=== PATIENT | male | born 1995 | race Caucasian/White ===

== ENCOUNTER 2020-12-25 15:58 | Outpatient (CLI) | payer OTHER ==
--- NOTE | 2020-12-25 16:54 | Ultrasound Report ---
PROCEDURE: Testicle INDICATIONS: Scrotal varices TECHNIQUE: Real-time scanning was performed of the scrotum and testicles, with image documentation. Color and p ulse Doppler interrogation was performed of both testicles. COMPARISON: None. FINDINGS: Right: No varicocele on the right. Small right varicocele. Normal appearance of the right testicle me asuring 2.4 x 2.8 x 4.4 cm. Normal arterial and venous Doppler signal in the right testicle. Epididym is unremarkable. Left: Mild to moderate left varicocele. Small left hydrocele. Normal appearance of the left testicle measuring 2.1 x 2.4 x 4.0 cm. No peripheral arterial and venous Doppler signal in the left testicle. Epididymis unremarkable. Doppler: Color and pulse Doppler demonstrate normal and symmetric arterial flow in both testicles. IMPRESSION: Mild to moderate left varicocele. Small bilateral hydroceles. Reviewed by: Lon Dudley MD on 12/25/2020 4:53 PM PDT Approved by: Lon Dudley MD on 12/25/2020 4:53 PM PDT Station ID: [id number]
== END 2020-12-25 15:59 | disposition home or self-care (01) ==
LOC: DI 15:58
PROVIDERS: ATTEND Urology
DX: I86.1 Scrotal varices (principal)

== ENCOUNTER 2022-06-07 21:27 | Emergency (ER) | payer OTHER ==
[2022-06-07] MEDS ORDERED: SODIUM CHLORIDE 0.9% 1,000 ML IV STA ×2 (21:46→22:33)
[2022-06-07] MEDS ORDERED: KETOROLAC 30 MG/ML VIAL IVP STA (21:46)
[2022-06-07] MEDS ORDERED: ONDANSETRON 4 MG/2 ML VIAL IVP STA (21:46)
[2022-06-07 22:02] LABS: BASOPHILS % (AUTO) 0.3 %; EOSINOPHILS % (AUTO) 0.1 %; HCT - HEMATOCRIT 47.5 % (42.0-52.0); HGB - HEMOGLOBIN 15.9 g/dL (14.0-18.0); LYMPHOCYTES # (AUTO) 0.5 10^3/uL (1.5-3.5); MEAN CORPUSCULAR HEMOGLOBIN 28.9 pg (27.0-31.0); MEAN CORPUSCULAR HGB CONC 33.5 g/dL (32.0-36.0); MEAN CORPUSCULAR VOLUME 86.2 fL (80.0-94.0); MEAN PLATELET VOLUME 9.2 fL (7.4-11.4); MONOCYTES # (AUTO) 0.6 10^3/uL (0.0-1.0); MONOCYTES % (AUTO) 8.8 %; NEUTROPHILS # (AUTO) 5.7 10^3/uL (1.5-6.6); NEUTROPHILS % (AUTO) 83.5 %; PLT - PLATELET COUNT 264 10^3/uL (130-450); RED BLOOD COUNT 5.51 10^6/uL (4.70-6.10); RED CELL DISTRIBUTION WIDTH 11.9 % (12.0-15.0); WHITE BLOOD COUNT 6.8 x10^3/uL (4.8-10.8)
[2022-06-07 22:16] LABS: ALBUMIN 4.2 g/dL (3.2-5.5); ALBUMIN/GLOBULIN RATIO 1.2 (1.0-2.2); BILIRUBIN,TOTAL 1.1 mg/dL (0.2-1.0); CALCIUM 8.8 mg/dL (8.5-10.3); POTASSIUM 3.8 mmol/L (3.5-5.0); TOTAL PROTEIN 7.7 g/dL (6.7-8.2)
[2022-06-08] MEDS ORDERED: ONDANSETRON ODT 4 MG Prepack 2 TL PRN (00:16)
--- NOTE | 2022-06-08 00:20 | ED Physician Documentation ---
History of Present Illness - Stated complaint Stated Complaint: V/D/LIGHTHEADED - Chief complaint Chief Complaint: Fever - History obtained from History obtained from: Patient - Additonal information Additional information: Patient is a 26-year-old male with no significant past medical history presenting for evaluation of nausea, vomiting and diarrhea starting this morning. He reports multiple episodes of emesis and diarrhea throughout the day that have been liquidy.He denies blood in either. He reports his son recently was ill with similar symptoms a few days ago. His is also a patient here today with similar symptoms. He denies eating anything unusual in recent days that could have caused his symptoms, recent travel or antibiotic use.He reports feeling lightheaded. He has been able to tolerate a Gatorade on the drive over. He denies prior abdominal surgeries. Review of Systems Constitutional: reports: Fever Cardiac: denies: Chest pain / pressure Respiratory: denies: Dyspnea GI: reports: Abdominal Pain, Nausea, Vomiting, Diarrhea. denies: Bloody / black stool Musculoskeletal: denies: Back pain Neurologic: denies: Headache PD PAST MEDICAL HISTORY - Present Medications Home Medications: Ambulatory Orders Medication Instructions Recorded Confirmed Ondansetron Odt [Zofran] 4 mg TL Q6H PRN #10 tablet 06/08/22 - Allergies Allergies/Adverse Reactions: Allergies Allergy/AdvReac Type Severity Reaction Status Date / Time No Known Drug Allergies Allergy Verified 06/07/22 21:35 PD ED PE NORMAL - General General: Alert and oriented X 3, No acute distress, Well developed/nourished - HEENT HEENT: Atraumatic - Neck Neck: Supple, no meningeal sign - Cardiac Cardiac: Other (Tachycardic, regular rhythm) - Respiratory Respiratory: No respiratory distress, Clear bilaterally - Abdomen Abdomen: Normal bowel sounds, Soft, Non tender, Non distended - Back Back: No CVA TTP - Derm Derm: Warm and dry - Neuro Neuro: Normal speech Results - Vitals Vitals: Vital Signs - 24 hr 06/07/22 06/07/22 06/07/22 21:30 22:07 22:49 Temperature 38.2 C H Heart Rate 134 H 112 H 108 H Respiratory 20 18 19 Rate Blood Pressure 115/72 122/75 121/68 O2 Saturation 98 100 98 06/07/22 06/08/22 23:11 00:40 Temperature 37.0 C Heart Rate 107 H 118 H Respiratory 17 16 Rate Blood Pressure 119/66 111/67 O2 Saturation 98 96 Oxygen O2 Source Room air - Labs Labs: Laboratory Tests 06/07/22 06/07/22 21:55 21:55 WBC 6.8 RBC 5.51 Hgb 15.9 Hct 47.5 MCV 86.2 MCH 28.9 MCHC 33.5 RDW 11.9 L Plt Count 264 MPV 9.2 Neut # (Auto) 5.7 Lymph # (Auto) 0.5 L Lynn # (Auto) 0.6 Eos # (Auto) 0.0 Baso # (Auto) 0.0 Absolute Nucleated RBC 0.00 Nucleated RBC % 0.0 Sodium 134 L Potassium 3.8 Chloride 99 L Carbon Dioxide 26 Anion Gap 9.0 BUN 21 H Creatinine 1.0 Estimated GFR (MDRD) 89 Glucose 112 H Calcium 8.8 Total Bilirubin 1.1 H AST 20 ALT 35 Alkaline Phosphatase 51 Total Protein 7.7 Albumin 4.2 Globulin 3.5 Albumin/Globulin Ratio 1.2 Lipase 30 PD Medical Decision Making - ED course Complexity details: reviewed results, re-evaluated patient, d/w patient ED course: Patient presenting for evaluation of 1 day history of nausea, vomiting and diarrhea. His son was recently ill with similar symptoms and the is also here with the same. He is tachycardic but otherwise vital signs are stable. He is ambulatory. His abdominal exam is benign on initial check and on reevaluation. Labs were obtained including CBC and chemistry and without Significant clinical findings. Patient received 2 L of IV fluids, Zofran and Toradol with improvement in his symptoms. He did have a low-grade fever upon arrival. He does not appear septic. He has not had further episodes of diarrhea or vomiting since being here. He has tolerated p.o. He is advised to continue with supportive care as well as concerning symptoms to return for. Departure - Departure Disposition: 01 Home, Self Care Clinical Impression: Nausea vomiting and diarrhea Condition: Stable Instructions: ED Diet Vomiting Diarrhea Prescriptions: Ondansetron Odt [Zofran] 4 mg TL Q6H PRN #10 tablet PRN Reason: Nausea / Vomiting Comments: You likely have a virus causing your Nausea, vomiting and diarrhea as other family members have also been ill with similar Symptoms. Please continue to stay hydrated as best you can. I sent a prescription for an antinausea medication to [facility] in [place]. If you start having diarrhea again you can use an [id number] medication called Imodium.Otherwise I am hoping that your illness is short and should be getting better by tomorrow.If at anytime though you have any worsening symptoms such as increased pain, continued vomiting, weakness or have any new concerns please consider return to the emergency department. Discharge Date/Time: 06/08/22 00:42
[2022-06-08 00:42] VITALS: BP 111/67
== END 2022-06-08 00:42 | disposition home or self-care (01) ==
LOC: ED 21:27
DX: R11.2 Nausea with vomiting, unspecified (principal); R19.7 Diarrhea, unspecified
CPT/HCPCS: 36415; 80053; 83690; 85025; 96374; 96375; 99283